=== PATIENT | male | born 2000 | race Two or more races ===

== ENCOUNTER 2022-08-05 22:32 | Emergency (ER) | payer OTHER ==
[~2022-08-05] VITALS: Ht 175.3 cm; Wt 75.0 kg
[2022-08-06] MEDS ORDERED: CYCL-837 PO (00:22)
[2022-08-06] MEDS ORDERED: IBUP800T26 PO (00:22)
[2022-08-06 00:35] VITALS: BP 113/75
== END 2022-08-06 00:36 | disposition home or self-care (01) ==
LOC: ER 22:35
DX: R07.89 Other chest pain (principal); M25.552 Pain in left hip; M79.652 Pain in left thigh; R51.9 Headache, unspecified; V43.52XA Car driver injured in collision with other type car in traffic accident, initial encounter; Y93.89 Activity, other specified; Y92.410 Unspecified street and highway as the place of occurrence of the external cause; Y99.8 Other external cause status
CPT/HCPCS: 70450; 71250; 72125; 73562; 74176